=== PATIENT | male | born 1935 | race African-American/Black ===

== ENCOUNTER 2017-07-03 13:58 | Emergency (ER) | payer MEDICARE, OTHER ==
[~2017-07-03] VITALS: Ht 182.9 cm; Wt 86.2 kg
[2017-07-03 14:05] VITALS: BP 155/85
--- NOTE | 2017-07-03 14:24 | Emergency Room Report ---
History of Present Illness General Chief Complaint: Abdominal Pain Source: Patient, Medical Record, EMS Present Illness HPI Patient presents with complaints of diffuse abdominal discomfort Reports that the bloating sensation started today Denies any vomiting denies any diarrhea he reports that he had a bowel movement earlier today Denies any chest pain or shortness of breath When asked more specifically he denies having pain, however does report distention and discomfort, he also reports that he needs medicine to coat his stomach Denies any previous surgeries Allergies: Coded Allergies: No Known Allergies (Unverified , 07/03/17) Patient History Past Medical History: see triage record Pertinent Family History: none Reviewed Nursing Documentation: PMH: Agreed; PSxH: Agreed Nursing Documentation-PMH Past Medical History: No History, Except For Hx Hypertension: Yes Hx Diabetes: Yes Hx Cancer: Yes - prostate Review of Systems All Other Systems: negative except mentioned in HPI Physical Exam Vital Signs Date Time Temp Pulse Resp B/P (MAP) Pulse Ox O2 Delivery O2 Flow Rate FiO2 07/03/17 13:54 98.6 87 16 155/85 98 Room Air 98.6 Sp02 EP Interpretation: reviewed, normal General Appearance: well appearing, no apparent distress Head: normocephalic, atraumatic Eyes: bilateral eye PERRL, bilateral eye EOMI ENT: hearing grossly normal, normal pharynx, TMs + canals normal, uvula midline Neck: full range of motion, supple, no meningismus, no bony tend Respiratory: lungs clear, normal breath sounds, no rhonchi, no respiratory distress, no retraction, no accessory muscle use Cardiovascular #1: normal peripheral pulses, regular rate, rhythm, no edema, no gallop, no JVD, no murmur Gastrointestinal: normal bowel sounds, non tender, no guarding, no hernia, no pulsatile mass, no rebound, other - Patient does have a small palpable umbilical hernia which is soft, abdomen itself does appear mildly distended however on palpation is soft as well some mild decreased bowel sounds Genitourinary: no CVA tenderness Musculoskeletal: normal inspection Neurologic: oriented x3, responsive, car greaser III-XII nml as tested, motor strength/ tone normal, sensory intact Psychiatric: mood/affect normal Skin: normal color, no rash, warm/dry, palpation normal Lymphatic: normal inspection, no adenopathy Medical Decision Making Diagnostic Impression: Primary Impression: Abdominal pain Additional Impression: Enlarged prostate ER Course With the history exam and presentation, multiple differentials considered, including but not limited to appendicitis, gastritis, cholecystitis, diverticulitis Given the patient's age and risk factors cardiac pathology also entertained Blood work all at baseline levels CT imaging shows concerning findings including the prostate In discussion with the patient reports that he has history of prostate cancer and has undergone therapy and is following closely with his primary physician Patient at this time requesting to go home he had been put in for admission however he reports that his pain is better and does not want to be in the hospital Labs Test 07/03/17 14:45 07/03/17 14:50 Urine Color Pale yellow Urine Appearance Clear Urine pH 6 (4.5-8.0) Urine Specific [place] 1.005 (1.005-1.035) Urine Protein 1+ (NEGATIVE) Urine Glucose (UA) Negative (NEGATIVE) Urine Ketones Negative (NEGATIVE) Urine Occult Blood Negative (NEGATIVE) Urine Nitrite Negative (NEGATIVE) Urine Bilirubin Negative (NEGATIVE) Urine Urobilinogen Normal MG/DL (0.0-1.0) Urine Leukocyte Esterase Negative (NEGATIVE) Urine RBC 0-2 /HPF (0 - 0) Urine WBC 0-2 /HPF (0 - 0) Urine Squamous Epithelial Cells None /LPF (NONE/OCC) Urine Bacteria Few /HPF (NONE) White Blood Count 8.5 K/UL (4.8-10.8) Red Blood Count 4.70 M/UL (4.70-6.10) Hemoglobin 12.0 G/DL (14.2-18.0) Hematocrit 38.3 % (42.0-52.0) Mean Corpuscular Volume 82 FL (80-99) Mean Corpuscular Hemoglobin 25.5 PG (27.0-31.0) Mean Corpuscular Hemoglobin Concent 31.3 G/DL (32.0-36.0) Red Cell Distribution Width 15.5 % (11.6-14.8) Platelet Count 223 K/UL (150-450) Mean Platelet Volume 6.7 FL (6.5-10.1) Neutrophils (%) (Auto) 68.7 % (45.0-75.0) Lymphocytes (%) (Auto) 20.6 % (20.0-45.0) Monocytes (%) (Auto) 9.1 % (1.0-10.0) Eosinophils (%) (Auto) 0.7 % (0.0-3.0) Basophils (%) (Auto) 0.9 % (0.0-2.0) Sodium Level 135 MMOL/L (136-145) Potassium Level 4.2 MMOL/L (3.5-5.1) Chloride Level 100 MMOL/L (98-107) Carbon Dioxide Level 30 MMOL/L (21-32) Anion Gap 6 mmol/L (5-15) Blood Urea Nitrogen 18 mg/dL (7-18) Creatinine 1.2 MG/DL (0.55-1.30) Estimat Glomerular Filtration Rate mL/min (>60) Glucose Level 110 MG/DL (74-106) Calcium Level 9.7 MG/DL (8.5-10.1) Total Bilirubin 0.2 MG/DL (0.2-1.0) Aspartate Amino Transf (AST/SGOT) 20 U/L (15-37) Alanine Aminotransferase (ALT/SGPT) 20 U/L (12-78) Alkaline Phosphatase 77 U/L (46-116) Total Creatine Kinase 148 U/L (26-308) Creatine Kinase MB 2.2 NG/ML (0.0-3.6) Creatine Kinase MB Relative Index 1.4 Troponin I 0.000 ng/mL (0.000-0.056) Total Protein 8.0 G/DL (6.4-8.2) Albumin 3.6 G/DL (3.4-5.0) Globulin 4.4 g/dL Albumin/Globulin Ratio 0.8 (1.0-2.7) Lipase 166 U/L (73-393) Rhythm Strip Diag. Results EP Interpretation: yes Rate: 67 Rhythm: NSR, no PVC's, no ectopy CT/MRI/US Diagnostic Results CT/MRI/US Diagnostic Results : Impression CT abdomen pelvisIMPRESSION: Limited exam without intravenous or oral contrast. Within these limitations: * Marked enlargement of the prostate which can be benign or malignant in etiology. The posterior inferior bladder wall is inseparable from portions of the prostate and there is apparent mass lesion in the posterior aspect of the bladder. This is poorly evaluated without contrast and uncertain whether this represents benign etiology such as mass effect from an enlarged prostate (BPH) or malignant etiology such as invasion of prostatic malignancy into the bladder or discrete bladder mass. Correlation with PSA, urine cytology and cystoscopy recommended for better evaluation. Urology consult/followup recommended. 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 Correlate with urinalysis to exclude urinary tract infection. Additional findings as above. Last Vital Signs Date Time Temp Pulse Resp B/P (MAP) Pulse Ox O2 Delivery O2 Flow Rate FiO2 07/03/17 14:05 98.6 70 16 155/85 98 Room Air 98.6 Status: improved Disposition: HOME, SELF-CARE Condition: Improved Additional Instructions: Patient is provided with the discharge instructions notified to follow up with primary doctor in the next 2-3 days otherwise return to the er with any worsening symptoms. Please note that this report is being documented using [employer] technology. This can lead to erroneous entry secondary to incorrect interpretation by the dictating instrument. Trixie Daniel DO Jul 03, 2017 14:24
[2017-07-03] MEDS ORDERED: PROSCAR5 MG ORAL (14:26)
[2017-07-03] MEDS ORDERED: PEPCID20 MG ORAL (14:26)
[2017-07-03] MEDS ORDERED: LOSARTAN POTASS50 MG ORAL (14:26)
[2017-07-03] MEDS ORDERED: FERROUS SULFAT325 MG ORAL (14:26)
[2017-07-03] MEDS ORDERED: ATORVASTATIN CA20 MG ORAL (14:26)
[2017-07-03] MEDS ORDERED: CARVEDILOL12.5 MG ORAL (14:26)
[2017-07-03] MEDS ORDERED: FUROSEMIDE20 M1 ORAL (14:26)
[2017-07-03] MEDS ORDERED: METFORMIN HCL500 M1 ORAL (14:26)
[2017-07-03 15:00] VITALS: BP 139/55
[2017-07-03 15:08] LABS: BASOPHILS % (AUTO) 0.9 % (0.0-2.0); EOSINOPHILS % (AUTO) 0.7 % (0.0-3.0); HEMATOCRIT 38.3 % (42.0-52.0); LYMPHOCYTES % (AUTO) 20.6 % (20.0-45.0); MEAN CORPUSCULAR VOLUME 82 FL (80-99); MONOCYTES % (AUTO) 9.1 % (1.0-10.0); NEUTROPHILS % (AUTO) 68.7 % (45.0-75.0); PLATELET COUNT 223 K/UL (150-450); RED CELL DISTRIBUTION WIDTH 15.5 % (11.6-14.8); WHITE BLOOD COUNT 8.5 K/UL (4.8-10.8)
[2017-07-03 15:21] LABS: ANION GAP 6 mmol/L (5-15); BLOOD UREA NITROGEN 18 mg/dL (7-18); CALCIUM 9.7 MG/DL (8.5-10.1); CARBON DIOXIDE 30 MMOL/L (21-32); CHLORIDE 100 MMOL/L (98-107); CREATININE 1.2 MG/DL (0.55-1.30); POTASSIUM 4.2 MMOL/L (3.5-5.1); SODIUM 135 MMOL/L (136-145)
[2017-07-03 15:34] LABS: ALANINE AMINOTRANSFERASE 20 U/L (12-78); ALBUMIN 3.6 G/DL (3.4-5.0); ALBUMIN/GLOBULIN RATIO 0.8 (1.0-2.7); ALKALINE PHOSPHATASE 77 U/L (46-116); ASPARTATE AMINO TRANSFERASE 20 U/L (15-37); BILIRUBIN,TOTAL 0.2 MG/DL (0.2-1.0); CKMB 2.2 NG/ML (0.0-3.6); CREATINE KINASE 148 U/L (26-308)
[2017-07-03 15:47] LABS: APPEARANCE,URINE CLEAR; BILIRUBIN, URINE NEGATIVE (NEGATIVE); COLOR,URINE PALE YELLOW; GLUCOSE, URINE (UA) NEGATIVE (NEGATIVE); KETONES,URINE NEGATIVE (NEGATIVE); LEUKOCYTE ESTERASE ,URINE NEGATIVE (NEGATIVE); NITRITE,URINE NEGATIVE (NEGATIVE); PH,URINE 6 (4.5-8.0); PROTEIN,URINE 1+ (NEGATIVE); UROBILINOGEN,URINE NORMAL MG/DL (0.0-1.0)
[2017-07-03 16:00] VITALS: BP 140/61
--- NOTE | 2017-07-03 16:00 | Diagnostic Imaging Report ---
Indication: Trauma pain Technique: CT of the abdomen and pelvis utilizing automated exposure control without intravenous or oral contrast. CT dose: Total DLP 984.52 mGycm; CTDI vol 18.4 mGy Comparison: None Findings: Please note that evaluation of the abdominal and pelvic viscera is limited without the use of intravenous and oral contrast. Within these limitations, the following observations are made: There is dependent atelectasis in the lung bases. Heart size within normal limits. There is no pericardial effusion. Punctate nonspecific calcification noted within the right hepatic lobe. Liver is otherwise unremarkable in appearance. Gallbladder unremarkable. No appreciable biliary ductal dilatation. Some calcifications are noted at the periphery of the spleen (series 3 image #26). These are nonspecific and may be sequela of prior granulomatous exposure or trauma. Noncontrast evaluation of the adrenal glands and pancreas is grossly unremarkable. Kidneys are symmetric in size. There is no urinary tract stone or hydronephrosis bilaterally. There is circumferential thickening of the wall of the bladder. There is marked enlargement of the prostate which exerts mass effect on the bladder. 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 The posterior inferior bladder wall is inseparable from portions of the prostate and there is apparent mass lesion in the posterior aspect of the bladder. Uncertain whether this represents mass effect from the enlarged prostate on the bladder or invasion into the bladder or discrete bladder mass. There is no appreciable pathologically enlarged pelvic or trabecular peritoneal lymphadenopathy. There is no evidence of free intraperitoneal air or fluid. There is no bowel obstruction. The appendix is normal. No appreciable bowel wall thickening is seen. There is a small fat-containing umbilical hernia. Abdominal aorta is normal in caliber with scattered atherosclerotic calcification. There are multilevel degenerative changes of the spine. No acute osseous abnormality is seen. IMPRESSION: Limited exam without intravenous or oral contrast. Within these limitations: * Marked enlargement of the prostate which can be benign or malignant in etiology. The posterior inferior bladder wall is inseparable from portions of the prostate and there is apparent mass lesion in the posterior aspect of the bladder. This is poorly evaluated without contrast and uncertain whether this represents benign etiology such as mass effect from an enlarged prostate (BPH) or malignant etiology such as invasion of prostatic malignancy into the bladder or discrete bladder mass. Correlation with PSA, urine cytology and cystoscopy recommended for better evaluation. Urology consult/followup recommended. 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 Correlate with urinalysis to exclude urinary tract infection. Additional findings as above. The CT scanner at [facility] is accredited by the [employer] and the scans are performed using protocols designed to limit radiation exposure to as low as reasonably achievable to attain images of sufficient resolution adequate for diagnostic evaluation.
[2017-07-03] MEDS ORDERED: Dicyclomine HCl 10mg/5ml oral soln ORAL ONE (18:00)
[2017-07-03] MEDS ORDERED: Mylanta II UD 30ml ORAL ONE (18:00)
[2017-07-03 18:12] VITALS: BP 136/54
== END 2017-07-03 18:23 | disposition home or self-care (01) ==
LOC: EDBD 13:58 → EMR 14:31 → CANBEDREQ 17:47 → EMR 18:23
DX: R10.9 Unspecified abdominal pain (principal); N40.0 Benign prostatic hyperplasia without lower urinary tract symptoms; E11.9 Type 2 diabetes mellitus without complications; I10 Essential (primary) hypertension; Z85.46 Personal history of malignant neoplasm of prostate
CPT/HCPCS: 36415; 74176; 80053; 81003; 82550; 82553; 83690; 84484; 85025; 93005; 99284

== ENCOUNTER 2017-07-08 08:38 | Emergency (ER) | payer MEDICARE ==
[~2017-07-08] VITALS: Ht 180.3 cm; Wt 95.3 kg
[~2017-07-08 08:38] MED LIST: ATORVASTATIN CA20 MG ORAL; CARVEDILOL12.5 MG ORAL; FERROUS SULFAT325 MG ORAL; FUROSEMIDE20 M1 ORAL; LOSARTAN POTASS50 MG ORAL; METFORMIN HCL500 M1 ORAL; PEPCID20 MG ORAL; PROSCAR5 MG ORAL
[2017-07-08 08:40] VITALS: BP 156/84
[2017-07-08] MEDS ORDERED: Morphine Sulfate 2mg/ml Inj IVP ONE (08:45)
[2017-07-08] MEDS ORDERED: Mylanta II UD 30ml ORAL ONE (08:45)
--- NOTE | 2017-07-08 08:51 | Emergency Room Report ---
History of Present Illness General Chief Complaint: Abdominal Pain Source: Patient, EMS Present Illness HPI The patient presents with abdominal pain and alleged black tarry bowel movements. He was seen July 03 and a room was requested for admission however he elected to go home as the abdominal pain was somewhat improved. A CT scan was done at that time. The pain is a suprapubic and radiating towards his back on bilateral of his flanks. He denies any fevers or chills. There's no nausea and vomiting. Pain rated 8/10. Feels like burning and requesting something to coat his stomach. He was given pepcid and this has helped minimally. The patient has a history of prostate cancer and is followed by his own doctor. He has not had any recent visits to his physicians. CT showed large prostate and bladder thickening. Radiation therapy completed 1 year ago. His MD told him he has anemia and therefore he has been taking iron. No URI sy, CP, dyspnea, headaches, dizziness, rashes, rectal pain. Allergies: Coded Allergies: No Known Allergies (Unverified , 07/03/17) Patient History Past Medical History: see triage record Social History: Reports: smoking - stopped Social History Narrative at home Reviewed Nursing Documentation: PMH: Agreed; PSxH: Agreed Nursing Documentation-PMH Hx Hypertension: Yes Hx Diabetes: Yes Hx Cancer: Yes - prostate Review of Systems All Other Systems: negative except mentioned in HPI Physical Exam Vital Signs Date Time Temp Pulse Resp B/P (MAP) Pulse Ox O2 Delivery O2 Flow Rate FiO2 07/08/17 08:28 97.8 72 16 156/84 99 Room Air 97.9 Sp02 EP Interpretation: reviewed, normal General Appearance: well appearing, no apparent distress, GCS 15 Head: normocephalic Eyes: bilateral eye normal inspection, bilateral eye PERRL ENT: moist mucus membranes Neck: supple Respiratory: lungs clear, normal breath sounds Cardiovascular #1: regular rate, rhythm Cardiovascular #2: 2+ radial (R) Gastrointestinal: normal inspection, normal bowel sounds, no mass, non- distended, no guarding, no rebound, tenderness - epigastric Rectal: heme negative stool - dark, other - unable to feel prostate Musculoskeletal: back normal, gait/station normal, normal range of motion Neurologic: alert, oriented x3, grossly normal Psychiatric: mood/affect normal Skin: normal inspection, warm/dry Medical Decision Making Diagnostic Impression: Primary Impression: Abdominal pain Qualified Codes: R10.9 - Unspecified abdominal pain ER Course The patient presents with abdominal pain and black stools. Differential includes gastritis, peptic ulcer disease, iron ingestion amongst others. His CT scan was abnormal on the previous visit. Because of his age EKG will be obtained along with a chest x-ray. Also labs will be reperformed. The patient will receive gentle IV hydration as well as analgesia. Also given mylanta. EKG without injury. CXR normal. Abd films - not indicated based on exam and review of CT. Labs with normal H/H, WBC and CMP. Lipase normal. Improved with pain meds and mylanta. Discussed findings with patient and need for f/u with his MD. Patient stable for outpatient observation and treatment. Laboratory Tests Test 07/08/17 08:45 07/08/17 09:20 White Blood Count 7.3 K/UL (4.8-10.8) Red Blood Count 5.00 M/UL (4.70-6.10) Hemoglobin 13.1 G/DL (14.2-18.0) L Hematocrit 41.1 % (42.0-52.0) L Mean Corpuscular Volume 82 FL (80-99) Mean Corpuscular Hemoglobin 26.2 PG (27.0-31.0) L Mean Corpuscular Hemoglobin Concent 31.9 G/DL (32.0-36.0) L Red Cell Distribution Width 15.8 % (11.6-14.8) H Platelet Count 223 K/UL (150-450) Mean Platelet Volume 6.8 FL (6.5-10.1) Neutrophils (%) (Auto) 66.7 % (45.0-75.0) Lymphocytes (%) (Auto) 20.3 % (20.0-45.0) Monocytes (%) (Auto) 11.3 % (1.0-10.0) H Eosinophils (%) (Auto) 0.8 % (0.0-3.0) Basophils (%) (Auto) 0.8 % (0.0-2.0) Prothrombin Time 10.4 SEC (9.30-11.50) Prothrombin Time INR 1.0 (0.9-1.1) PTT 26 SEC (23-33) Sodium Level 135 MMOL/L (136-145) L Potassium Level 4.2 MMOL/L (3.5-5.1) Chloride Level 102 MMOL/L (98-107) Carbon Dioxide Level 26 MMOL/L (21-32) Anion Gap 7 mmol/L (5-15) Blood Urea Nitrogen 22 mg/dL (7-18) H Creatinine 1.3 MG/DL (0.55-1.30) Estimate Glomerular Filtration Rate mL/min (>60) Glucose Level 141 MG/DL (74-106) H Calcium Level 9.5 MG/DL (8.5-10.1) Total Bilirubin 0.3 MG/DL (0.2-1.0) Aspartate Amino Transferase (AST) 21 U/L (15-37) Alanine Aminotransferase (ALT) 21 U/L (12-78) Alkaline Phosphatase 77 U/L (46-116) Troponin I 0.000 ng/mL (0.000-0.056) Total Protein 7.9 G/DL (6.4-8.2) Albumin 3.5 G/DL (3.4-5.0) Globulin 4.4 g/dL Albumin/Globulin Ratio 0.8 (1.0-2.7) L Lipase 149 U/L (73-393) Urine Color Pale yellow Urine Appearance Clear Urine pH 6.5 (4.5-8.0) Urine Specific [place] 1.010 (1.005-1.035) Urine Protein 2+ (NEGATIVE) H Urine Glucose (UA) Negative (NEGATIVE) Urine Ketones Negative (NEGATIVE) Urine Occult Blood 1+ (NEGATIVE) H Urine Nitrite Negative (NEGATIVE) Urine Bilirubin Negative (NEGATIVE) Urine Urobilinogen Normal MG/DL (0.0-1.0) Urine Leukocyte Esterase Negative (NEGATIVE) Urine RBC 2-4 /HPF (0 - 0) H Urine WBC 0-2 /HPF (0 - 0) Urine Squamous Epithelial Cells Few /LPF (NONE/OCC) Urine Bacteria Few /HPF (NONE) EKG Diagnostic Results Rate: normal Rhythm: NSR ST Segments: no acute changes Rhythm Strip Diag. Results EP Interpretation: yes Rhythm: NSR, no PVC's, no ectopy Chest X-Ray Diagnostic Results Chest X-Ray Diagnostic Results : Chest X-Ray Ordered: Yes # of Views/Limited/Complete: 1 View Indication: Other EP Interpretation: Yes Interpretation: no consolidation, no effusion, no pneumothorax Impression: No acute disease Electronically Signed by: Ramírez Bernard MD Last Vital Signs Date Time Temp Pulse Resp B/P (MAP) Pulse Ox O2 Delivery O2 Flow Rate FiO2 07/08/17 11:40 97.9 67 16 144/58 99 Room Air 97.9 Status: improved Disposition: HOME, SELF-CARE Condition: Improved Scripts Famotidine (PEPCID) 20 Mg Tablet 20 MG ORAL DAILY, #30 TAB 0 Refills Prov: Ramírez Bernard M.D. 07/08/17 Mag Hydrox/Al Hydrox/Simeth (MAALOX MAXIMUM STRENGTH SUSP) 355 Ml Oral.susp 30 ML PO Q6HR, #240 ML 1 Refill Prov: Ramírez Bernard M.D. 07/08/17 Referrals: [facility],REFERRING (PCP) Ramírez Bernard M.D. Jul 08, 2017 08:51
[2017-07-08 09:01] LABS: BASOPHILS % (AUTO) 0.8 % (0.0-2.0); EOSINOPHILS % (AUTO) 0.8 % (0.0-3.0); HEMATOCRIT 41.1 % (42.0-52.0); HEMOGLOBIN 13.1 G/DL (14.2-18.0); LYMPHOCYTES % (AUTO) 20.3 % (20.0-45.0); MEAN CORPUSCULAR VOLUME 82 FL (80-99); MONOCYTES % (AUTO) 11.3 % (1.0-10.0); NEUTROPHILS % (AUTO) 66.7 % (45.0-75.0); PLATELET COUNT 223 K/UL (150-450); RED CELL DISTRIBUTION WIDTH 15.8 % (11.6-14.8); WHITE BLOOD COUNT 7.3 K/UL (4.8-10.8)
[2017-07-08 09:11] LABS: ANION GAP 7 mmol/L (5-15); BLOOD UREA NITROGEN 22 mg/dL (7-18); CALCIUM 9.5 MG/DL (8.5-10.1); CARBON DIOXIDE 26 MMOL/L (21-32); CHLORIDE 102 MMOL/L (98-107); CREATININE 1.3 MG/DL (0.55-1.30); POTASSIUM 4.2 MMOL/L (3.5-5.1); SODIUM 135 MMOL/L (136-145)
[2017-07-08 09:16] LABS: ALANINE AMINOTRANSFERASE 21 U/L (12-78); ALBUMIN 3.5 G/DL (3.4-5.0); ALBUMIN/GLOBULIN RATIO 0.8 (1.0-2.7); ALKALINE PHOSPHATASE 77 U/L (46-116); ASPARTATE AMINO TRANSFERASE 21 U/L (15-37); BILIRUBIN,TOTAL 0.3 MG/DL (0.2-1.0)
[2017-07-08 09:35] LABS: APPEARANCE,URINE CLEAR; BILIRUBIN, URINE NEGATIVE (NEGATIVE); COLOR,URINE PALE YELLOW; GLUCOSE, URINE (UA) NEGATIVE (NEGATIVE); KETONES,URINE NEGATIVE (NEGATIVE); LEUKOCYTE ESTERASE ,URINE NEGATIVE (NEGATIVE); NITRITE,URINE NEGATIVE (NEGATIVE); PH,URINE 6.5 (4.5-8.0); PROTEIN,URINE 2+ (NEGATIVE); UROBILINOGEN,URINE NORMAL MG/DL (0.0-1.0)
--- NOTE | 2017-07-08 10:29 | Diagnostic Imaging Report ---
Indication: Chest pain Technique: One view of the chest Comparison: none Findings: The lungs and pleural spaces are clear. Heart size is upper limits of normal. The aorta is elongated and tortuous Impression: No acute process
[2017-07-08] MEDS ORDERED: MAALOX MAXIMUM355 M1 PO (11:07)
[2017-07-08] MEDS ORDERED: PEPCID20 MG ORAL (11:07)
[2017-07-08 11:40] VITALS: BP 144/58
--- NOTE | 2017-07-09 17:28 | Cardiology Report ---
APPROVED REPORT EKG Measurement Heart [id number] [place] [id number] [id number] Normal sinus rhythm Normal ECG
== END 2017-07-08 12:07 | disposition home or self-care (01) ==
LOC: EDBD 08:38 → EMR 08:47
DX: R10.9 Unspecified abdominal pain (principal); Z85.46 Personal history of malignant neoplasm of prostate; Z87.891 Personal history of nicotine dependence; I10 Essential (primary) hypertension; E11.9 Type 2 diabetes mellitus without complications
CPT/HCPCS: 36415; 71045; 80053; 81003; 83690; 84484; 85025; 85610; 85730; 93005; 96361; 96374; 96375; 99284; J2405; S0028

== ENCOUNTER 2019-08-30 15:02 | Inpatient (IN) | payer MEDICARE, MEDICAID ==
[~2019-08-30] VITALS: Ht 180.3 cm; Wt 92.1 kg
[~2019-08-30 15:02] MED LIST changes: +MAALOX MAXIMUM355 M1 PO
--- NOTE | 2019-08-30 15:06 | Emergency Room Report ---
History of Present Illness General Source: Patient Present Illness HPI 84-year-old male brought in by EMS after increased abdominal pain and vomiting. Patient had been having difficulty with emesis for approximately 2 weeks. Intermittent episodes. Associated burning sensation in his chest. Patient was brought in by EMS after worsening abdominal pain.Patient has a past history of type 2 diabetes as well as high blood pressure. He has been taking iron pills.Patient had previous hospital visit which was noted to have prostate cancer and had previously radiation for his prostate. Patient was followed by Dr. Martinez for urology. Allergies: Coded Allergies: No Known Allergies (Unverified , 07/03/17) Patient History Past Medical History: see triage record Reviewed Nursing Documentation: PMH: Agreed; PSxH: Agreed Nursing Documentation-PMH Hx Hypertension: Yes Hx Diabetes: Yes Hx Cancer: Yes - prostate Review of Systems All Other Systems: negative except mentioned in HPI Physical Exam General Appearance: no apparent distress, alert, Chronically Ill Neck: full range of motion Respiratory: lungs clear, normal breath sounds Cardiovascular #1: normal peripheral pulses, regular rate, rhythm Gastrointestinal: distended, hernia - Easily reducible ventral hernia Musculoskeletal: normal inspection, decreased range of motion, normal range of motion Neurologic: alert, motor strength/tone normal, legal investigator III-XII nml as tested, oriented x3 Psychiatric: normal inspection, judgement/insight normal Skin: no rash Medical Decision Making Diagnostic Impression: Primary Impression: Abdominal pain Additional Impressions: Anemia Hyperkalemia Renal insufficiency ER Course Patient presented for abdominal pain. Differential diagnoses included ischemic bowel, appendicitis, perforated viscus, abdominal aortic aneurysm, inferior myocardial infarction, viral gastroenteritis among others.Because patient's complexity imaging studies, and laboratory testing ordered.Patient's laboratory testing showed markedly elevated potassium as well as elevated BUN and creatinine. He was noted to be hypoalbuminemic.Patient was consented for blood due to anemia but does not have any evidence of acute active bleeding at this time. Type and cross for blood. He was given IV Pepcid. White blood count was normal. Atrophic kidneys with CT of the abdomen pelvis showed: Thickened bladder wall markedly enlarged prostate. Patient was able to void in the emergency department with dark- colored urine. He was given IV fluids. Dr. Marquez was contacted for inpatient management for panel admission. Labs Test 08/30/19 15:20 08/30/19 16:35 08/30/19 17:18 White Blood Count 9.2 K/UL (4.8-10.8) Red Blood Count 2.86 M/UL (4.70-6.10) Hemoglobin 7.5 G/DL (14.2-18.0) Hematocrit 23.2 % (42.0-52.0) Mean Corpuscular Volume 81 FL (80-99) Mean Corpuscular Hemoglobin 24.6 PG (27.0-31.0) Mean Corpuscular Hemoglobin Concent 30.2 G/DL (32.0-36.0) Red Cell Distribution Width 18.8 % (11.6-14.8) Platelet Count 483 K/UL (150-450) Mean Platelet Volume 6.0 FL (6.5-10.1) Neutrophils (%) (Auto) % (45.0-75.0) Lymphocytes (%) (Auto) % (20.0-45.0) Monocytes (%) (Auto) % (1.0-10.0) Eosinophils (%) (Auto) % (0.0-3.0) Basophils (%) (Auto) % (0.0-2.0) Differential Total Cells Counted 100 Neutrophils % (Manual) 70 % (45-75) Lymphocytes % (Manual) 15 % (20-45) Monocytes % (Manual) 8 % (1-10) Eosinophils % (Manual) 1 % (0-3) Basophils % (Manual) 1 % (0-2) Band Neutrophils 5 % (0-8) Platelet Estimate Increased Platelet Morphology Normal Giant Platelets Occasional Hypochromasia 2+ Anisocytosis 2+ Prothrombin Time 12.3 SEC (9.30-11.50) Prothromb Time International Ratio 1.1 (0.9-1.1) Activated Partial Thromboplast Time 28 SEC (23-33) Sodium Level 126 MMOL/L (136-145) Potassium Level 6.3 MMOL/L (3.5-5.1) Chloride Level 96 MMOL/L (98-107) Carbon Dioxide Level 20 MMOL/L (21-32) Anion Gap 11 mmol/L (5-15) Blood Urea Nitrogen 84 mg/dL (7-18) Creatinine 6.5 MG/DL (0.55-1.30) Estimat Glomerular Filtration Rate 9.9 mL/min (>60) Glucose Level 112 MG/DL (74-106) Calcium Level 9.0 MG/DL (8.5-10.1) Total Bilirubin 0.3 MG/DL (0.2-1.0) Aspartate Amino Transf (AST/SGOT) 28 U/L (15-37) Alanine Aminotransferase (ALT/SGPT) 65 U/L (12-78) Alkaline Phosphatase 77 U/L (46-116) Troponin I 0.000 ng/mL (0.000-0.056) Total Protein 6.7 G/DL (6.4-8.2) Albumin 1.9 G/DL (3.4-5.0) Globulin 4.8 g/dL Albumin/Globulin Ratio 0.4 (1.0-2.7) Lipase 308 U/L (73-393) Urine Color Pale yellow Urine Appearance Turbid Urine pH 6 (4.5-8.0) Urine Specific [place] 1.010 (1.005-1.035) Urine Protein 3+ (NEGATIVE) Urine Glucose (UA) Negative (NEGATIVE) Urine Ketones Negative (NEGATIVE) Urine Blood 5+ (NEGATIVE) Urine Nitrite Negative (NEGATIVE) Urine Bilirubin Negative (NEGATIVE) Urine Urobilinogen Normal MG/DL (0.0-1.0) Urine Leukocyte Esterase 3+ (NEGATIVE) EKG Diagnostic Results Rate: normal Rhythm: NSR ST Segments: other - no peaked twaves or qwave abnormality Status: unchanged Disposition: ADMITTED INPATIENT Condition: Stable Rafy Cassidy MD Aug 30, 2019 15:06
[2019-08-30] MEDS ORDERED: Omnipaque-300 100ml vial INJ PRN (15:15)
[2019-08-30 15:44] LABS: HEMATOCRIT 23.2 % (42.0-52.0); MEAN CORPUSCULAR VOLUME 81 FL (80-99); PLATELET COUNT 483 K/UL (150-450); RED BLOOD COUNT 2.86 M/UL (4.70-6.10); RED CELL DISTRIBUTION WIDTH 18.8 % (11.6-14.8); WHITE BLOOD COUNT 9.2 K/UL (4.8-10.8)
[2019-08-30 15:45] LABS: HEMOGLOBIN 7.5 G/DL (14.2-18.0)
[2019-08-30 15:46] LABS: INR 1.1 (0.9-1.1)
[2019-08-30] MEDS ORDERED: AVODART0.5 MG ORAL (17:21)
[2019-08-30] MEDS ORDERED: JANUVIA25 MG ORAL (17:21)
[2019-08-30 17:25] LABS: ALANINE AMINOTRANSFERASE 65 U/L (12-78); ALBUMIN 1.9 G/DL (3.4-5.0); ALBUMIN/GLOBULIN RATIO 0.4 (1.0-2.7); ALKALINE PHOSPHATASE 77 U/L (46-116); ANION GAP 11 mmol/L (5-15); ASPARTATE AMINO TRANSFERASE 28 U/L (15-37); BILIRUBIN,TOTAL 0.3 MG/DL (0.2-1.0); BLOOD UREA NITROGEN 84 mg/dL (7-18); CARBON DIOXIDE 20 MMOL/L (21-32); CHLORIDE 96 MMOL/L (98-107); CREATININE 6.5 MG/DL (0.55-1.30); SODIUM 126 MMOL/L (136-145)
[2019-08-30 17:26] LABS: POTASSIUM 6.3 MMOL/L (3.5-5.1)
[2019-08-30 17:55] LABS: APPEARANCE,URINE TURBID; BILIRUBIN, URINE NEGATIVE (NEGATIVE); COLOR,URINE PALE YELLOW; GLUCOSE, URINE (UA) NEGATIVE (NEGATIVE); KETONES,URINE NEGATIVE (NEGATIVE); LEUKOCYTE ESTERASE ,URINE 3+ (NEGATIVE); NITRITE,URINE NEGATIVE (NEGATIVE); PH,URINE 6 (4.5-8.0); PROTEIN,URINE 3+ (NEGATIVE); UROBILINOGEN,URINE NORMAL MG/DL (0.0-1.0)
[2019-08-30] MEDS ORDERED: Sodium Polystyrene Sulfonate 15gm Powder ORAL ONE (18:00)
--- NOTE | 2019-08-30 18:11 | Diagnostic Imaging Report ---
EXAM: CT Abdomen and Pelvis With Intravenous Contrast CLINICAL HISTORY: ABD PAIN TECHNIQUE: Axial computed tomography images of the abdomen and pelvis with intravenous contrast. CTDI is 8 mGy and DLP is 497 mGy-cm. One or more of the following dose reduction techniques were used: automated exposure control, adjustment of the mA and/or kV according to patient size, use of iterative reconstruction technique. Coronal and sagittal reformatted images were created and reviewed. Axial reformatted images were created and reviewed. COMPARISON: 07/03/17 FINDINGS: Lung bases: Mosaic lung attenuation could represent small airways disease. Mediastinum: Moderate hiatal hernia. ABDOMEN: Liver: Old granulomatous disease in the liver. Otherwise unremarkable liver. Gallbladder and bile ducts: Unremarkable. No calcified stones. No ductal dilation. Pancreas: Stranding in the pancreaticoduodenal groove is of uncertain significance, and could be incidental, could be due to infectious or inflammatory duodenitis, mild and cryptitis, peptic ulcer disease, correlate with presentation. No ductal dilation. Spleen: Chronic splenic calcifications are likely no acute focal significance. Adrenals: Unremarkable. No mass. Kidneys and ureters: Massively enlarged prostate 6.7 cm TV by 10 cm CC by 6.7 cm AP with substantial urinary bladder wall thickening and prominent left lateral urinary bladder diverticulum. Bilateral moderate- severe hydroureteronephrosis. Bilateral urothelial thickening. Bilateral periureteral stranding and pericystic stranding. Stomach and bowel: See above. PELVIS: Appendix: No findings to suggest acute appendicitis. Bladder: Unremarkable. No mass. Reproductive: Unremarkable as visualized. ABDOMEN and PELVIS: Intraperitoneal space: Unremarkable. No free air. No significant fluid collection. Bones/joints: Degenerative spine findings. No acute fracture. No dislocation. Soft tissues: Small fat-containing bilateral indirect inguinal hernias. Soft tissue likely benign lipoma of the dorsal aspect of the penis 5.3 x 3.5 x 3.8 cm. Vasculature: Atherosclerotic vascular disease. No abdominal aortic aneurysm. Lymph nodes: Left periaortic retroperitoneal lymphadenopathy with largest node measuring 4.9 x 3.8 x 1.1 cm, this is concerning for retroperitoneal laisha metastatic disease, correlate with presentation and consider biopsy. IMPRESSION: 1. Massive prostatomegaly and urinary bladder wall thickening likely due to chronic outlet obstruction with findings suggesting superimposed UTI described above, correlate with presentation. 2. Recommend urology consultation. 3. Left periaortic retroperitoneal lymphadenopathy with largest node measuring 4.9 x 3.8 x 1.1 cm, this is concerning for retroperitoneal laisha metastatic disease, correlate with presentation and consider biopsy. 4. Stranding in the pancreaticoduodenal groove is of uncertain significance, and could be incidental, could be due to infectious or inflammatory duodenitis, mild and cryptitis, peptic ulcer disease, correlate with presentation. 5. Mosaic lung attenuation could represent small airways disease. 6. Moderate hiatal hernia. 7. Chronic splenic calcifications are likely no acute focal significance. 8. Probable subcutaneous lipoma dorsal to the penis.
[2019-08-30 18:33] VITALS: BP 135/83
[2019-08-30 19:16] VITALS: BP 135/83
--- NOTE | 2019-08-31 03:15 | History and Physical Report ---
DATE OF ADMISSION: 08/30/2019 HISTORY OF PRESENT ILLNESS: This is an 84-year-old male who came in with abdominal pain, nausea, vomiting, hyperkalemia, anemia, and was found to have a history of prostate CA, has been taking radiation treatment for two years. The patient has enlarged prostate, hyperkalemia, BUN and creatinine high and also was found hydronephrosis. The patient's hemoglobin was low at 7 units. The patient is currently alert, oriented x2. PAST MEDICAL HISTORY: Metastatic prostate CA, hypertension, and anemia. MEDICATIONS: See the list. ALLERGIES: No known drug allergies. FAMILY HISTORY: Noncontributory. SOCIAL HISTORY: Patient lives at home. PHYSICAL EXAMINATION: GENERAL: This is an elderly cachectic male, generalized weakness. The patient looks diaphoretic and generalized weakness. VITAL SIGNS: Blood pressure is 110/70, pulse 74, and respirations 18. Temperature, no fever. HEENT: NAD. CHEST: Bilateral decreased breath sounds. CARDIOVASCULAR: Regular rhythm. No gallop. No murmur. ABDOMEN: Soft, positive bowel sounds, nontender. EXTREMITIES: No edema. GENITOURINARY: Deferred. LABORATORY DATA: The patient's hemoglobin is 7.5, BUN 84, creatinine 6.3, and K was 6.3. ASSESSMENT: 1. Abdominal pain. 2. Nausea and vomiting. 3. Weakness. 4. Hyperkalemia. 5. Acute renal failure. 6. Enlarged prostate. 7. Hydronephrosis. We will admit on telemetry bed. 8. Anemia. PLAN: We will admit on telemetry bed. Type and cross and transfuse 2 units. Consider Nephrology consult, and the patient was given Kayexalate. We will repeat his BMP tomorrow. Consider Urology and Nephrology consult, and also start some hydration. Wilder Marquez M.D. DR: RC JOB#: [id number] CC:
--- NOTE | 2019-08-31 10:30 | Discharge Summary ---
Discharge Summary Discharge Summary _ DATE OF ADMISSION: 08/30/2019 DATE OF DISCHARGE: 08/30/2019 Patient left AGAINST MEDICAL ADVICE REASON FOR ADMISSION: 84 years old male with past medical history of metastatic prostate cancer, hypertension, anemia, presented with abdominal pain with associated nausea and vomiting. Upon evaluation in emergency department patient was found to have acute renal failure with BUN 84, creatinine 6.5. Potassium was 6.3 , sodium 126. Troponin was negative. EKG revealed sinus rhythm , no acute ischemic changes. Patient also had evidence of evidence of anemia with hemoglobin 7.5 and hematocrit 23.2. Urinalysis revealed pyuria , many bacteria, +[address] of the abdomen and pelvis demonstrated 1. Massive prostatomegaly and urinary bladder wall thickening likely due to chronic outlet obstruction with findings suggesting superimposed UTI described above, correlate with presentation. 2. Recommend urology consultation. 3. Left periaortic retroperitoneal lymphadenopathy with largest node measuring 4.9 x 3.8 x 1.1 cm, concerning for retroperitoneal laisha metastatic disease, correlate with presentation and consider biopsy. 4. Stranding in the pancreaticoduodenal groove is of uncertain significance, and could be incidental, could be due to infectious or inflammatory duodenitis, mild and cryptitis, peptic ulcer disease, correlate with presentation. 5. Mosaic lung attenuation could represent small airways disease. 6. Moderate hiatal hernia. 7. Chronic splenic calcifications are likely no acute focal significance. 8. Probable subcutaneous lipoma dorsal to the penis. In the emergency department patient received 1 L of fluid , Pepcid, antiemetic, treated for hyperkalemia and subsequently admitted to telemetry floor for further management. HOSPITAL COURSE: Patient admitted to telemetry floor. Patient was typed and crossed and ordered transfusion of 2 units of packed red blood cells. Patient started on the IV hydration. Patient received Kayexalate in ED. Nephrology and urology consulted. Later the same day patient decided to leave AGAINST MEDICAL ADVICE. The risks and consequences of signing AGAINST MEDICAL ADVICE were discussed with patient in detail. Patient verbalized understanding, nevertheless signed AMA form and left. FINAL DIAGNOSES: Acute renal failure Hyperkalemia Anemia Abdominal pain with nausea and vomiting Metastatic prostate cancer Hydronephrosis Possible UTI I have been assigned to dictate discharge summary for this account. I was not involved in the patient's management. Elaine Vidal NP Aug 31, 2019 10:30
== END 2019-08-30 21:50 | disposition left against medical advice (07) | DRG 683 ==
LOC: EDBD 15:02 → EMR 15:30 → 2E 16:27 → EDBEDREQ 17:09
DX: N17.9 Acute kidney failure, unspecified (principal); N39.0 Urinary tract infection, site not specified; C77.2 Secondary and unspecified malignant neoplasm of intra-abdominal lymph nodes; E87.5 Hyperkalemia; N40.0 Benign prostatic hyperplasia without lower urinary tract symptoms; C61 Malignant neoplasm of prostate; K44.9 Diaphragmatic hernia without obstruction or gangrene; D17.1 Benign lipomatous neoplasm of skin and subcutaneous tissue of trunk; N13.30 Unspecified hydronephrosis
CPT/HCPCS: 36415; 74176; 80053; 81003; 83690; 84484; 85007; 85025; 85610; 85730; 86850; 86900; 86901; 86920; 87086; 93005; 96361; 96374; 96375; 99285; J2405; J7030

== ENCOUNTER 2020-02-23 11:30 | Emergency (ER) | payer MEDICARE, MEDICAID ==
[~2020-02-23] VITALS: Ht 180.3 cm; Wt 81.6 kg
[~2020-02-23 11:30] MED LIST changes: +AVODART0.5 MG ORAL; +BACTRIM DS TAB1 EAC1 ORAL; +JANUVIA25 MG ORAL; +LEVOFLOXACIN500 MG ORAL; +ULTRA-LIGHT RO1 EACH MC
[2020-02-23 11:40] VITALS: BP 146/70
--- NOTE | 2020-02-23 11:47 | NUR ---
ED Nurse Note: Brought in by ambulance on [facility]. Breathing is unlabored resting comfortably. Axox4. Pt states that while he was changing his sanchez bag that he got "a little excited" and inadvertently removed his sanchez catheter. He also has two nephrostomy bags bilat that are draining clear yellow fluid. He has the bags attached to the leg strap upon arrival. No complaints of pain. Vital signs stable as documented on RA.
--- NOTE | 2020-02-23 12:15 | NUR ---
ED Nurse Note: Inserted catheter. No adverse reactions. No bleeding or pain. Draining clear fluid. Changed to leg bag per pt request.
[2020-02-23 12:20] VITALS: BP 140/62
--- NOTE | 2020-02-23 12:21 | NUR ---
ER DISCHARGE NOTE: Patient is cleared to be discharged per ERMD, pt is aox4, on room air, with stable vital signs. pt was given dc and instructions, pt was able to verbalize understanding, pt id band removed without complications. pt is able to ambulate with steady gait. pt took all belongings. DC to home via taxi.
--- NOTE | 2020-02-24 07:08 | Emergency Room Report ---
History of Present Illness General Chief Complaint: Male Urogenital Problems Source: Patient, Medical Record Present Illness HPI 84-year-old male presents for Sanchez catheter replacement. Brought in by EMS from home. Accidentally pulled out his Sanchez catheter today. History of BPH. [facility] Denies any bleeding. Denies pain. No other aggravating relieving factors. 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: No Patient History Past Medical History: DM, HTN Past Surgical History: none Pertinent Family History: none Social History: Denies: smoking, alcohol use, drug use Immunizations: UTD Reviewed Nursing Documentation: PMH: Agreed; PSxH: Agreed Nursing Documentation-PMH Hx Hypertension: Yes Hx Diabetes: Yes Hx Cancer: Yes Review of Systems All Other Systems: negative except mentioned in HPI Physical Exam Vital Signs Date Time Temp Pulse Resp B/P (MAP) Pulse Ox O2 Delivery O2 Flow Rate FiO2 02/23/20 11:26 98.2 76 18 147/75 (99) 97 Room Air Sp02 EP Interpretation: reviewed, normal General Appearance: no apparent distress, alert, GCS 15, non-toxic Head: normocephalic, atraumatic Eyes: bilateral eye normal inspection, bilateral eye PERRL ENT: hearing grossly normal, normal pharynx, no angioedema, normal voice Neck: full range of motion, supple/symm/no masses Respiratory: chest non-tender, lungs clear, normal breath sounds, speaking full sentences Cardiovascular #1: regular rate, rhythm, no edema Cardiovascular #2: 2+ carotid (R), 2+ carotid (L), 2+ radial (R), 2+ radial (L), 2+ dorsalis pedis (R), 2+ dorsalis pedis (L) Gastrointestinal: normal bowel sounds, non tender, soft, non-distended, no guarding, no rebound Rectal: deferred Genitourinary: normal inspection, no CVA tenderness Musculoskeletal: back normal, normal range of motion, gait/station normal, non- tender Neurologic: alert, motor strength/tone normal, oriented x3, sensory intact, r esponsive, speech normal Psychiatric: judgement/insight normal, memory normal, mood/affect normal, no suicidal/homicidal ideation Reflexes: 3+ bicep (R), 3+ bicep (L), 3+ tricep (R), 3+ tricep (L), 3+ knee (R), 3+ knee (L) Lymphatic: no adenopathy Medical Decision Making Diagnostic Impression: Primary Impression: Sanchez catheter problem Qualified Codes: T83.9XXA - Unspecified complication of genitourinary prosthetic device, implant and graft, initial encounter ER Course Hospital Course 84-year-old male pulled out his Sanchez catheter today by mistake Differential diagnoses include: obstruction, UTI, BPH Clinical course Patient placed on stretcher. After initial history and physical I ordered sanchez cather with immediate relief of obstruction I discussed findings with patient. Will discharge home with Sanchez and leg bag. States he will follow-up with his urologist at the [facility] Diagnosis -Sanchez catheter problem Stable and discharged home with sanchez + leg bag. Instructed to followup with PMD/urologist. Return to ED if symptoms recur or worsen Last Vital Signs Date Time Temp Pulse Resp B/P (MAP) Pulse Ox O2 Delivery O2 Flow Rate FiO2 02/23/20 12:20 98.2 82 16 140/62 98 Room Air Status: improved Disposition: HOME, SELF-CARE Condition: Stable Referrals: NON PHYSICIAN (PCP) Patient Instructions: Sanchez Catheter Care, Adult, [id number] Vaibhav Salcido MD Feb 24, 2020 07:08
== END 2020-02-23 13:00 | disposition home or self-care (01) ==
LOC: EDBD 11:30 → EMR 12:50
DX: T83.021A Displacement of indwelling urethral catheter, initial encounter (principal); I10 Essential (primary) hypertension; E11.9 Type 2 diabetes mellitus without complications; N40.0 Benign prostatic hyperplasia without lower urinary tract symptoms; Z85.9 Personal history of malignant neoplasm, unspecified
CPT/HCPCS: 99283

== ENCOUNTER 2020-05-05 22:03 | Emergency (ER) | payer MEDICARE, MEDICAID ==
[~2020-05-05] VITALS: Ht 180.3 cm; Wt 86.2 kg
--- NOTE | 2020-05-05 22:10 | NUR ---
ED Nurse Note: Patient BIBA with complaints of catheter malfunction, pulled out and leakage noted. Patient has three leg bags, all unclean. Patient reports having cath in the seven months. Afebrile. Denies any of pain or infections.
--- NOTE | 2020-05-05 23:08 | Emergency Room Report ---
History of Present Illness General Chief Complaint: General Complaint Source: Patient, Medical Record Present Illness HPI He 5-year-old male with history of obstructive uropathy. [facility] He has bilateral nephrostomy tubes and a Rosas. He presents with chief complaint of problem with his tube. He said the left one came out and right back is leaking. He denies any trauma. No fever chills no pain. The last time he had this change was over a month ago. He is scheduled for follow-up next week. Allergies: Coded Allergies: No Known Allergies (Unverified , 07/03/17) COVID-19 Screening Contact w/high risk pt: No Recent Travel to affected area: No Experienced COVID-19 symptoms?: No COVID-19 Testing performed SNOW MAKER: No Patient History Past Medical History: see triage record, old chart reviewed, DM, HTN Past Surgical History: other Pertinent Family History: none Social History: Denies: smoking Immunizations: other Reviewed Nursing Documentation: PMH: Agreed; PSxH: Agreed Nursing Documentation-PMH Hx Hypertension: Yes Hx Diabetes: Yes Hx Cancer: Yes Review of Systems Eye: Denies: eye pain, blurred vision ENT: Denies: ear pain, nose congestion, throat swelling Respiratory: Denies: cough, shortness of breath Cardiovascular: Denies: chest pain, palpitations Gastrointestinal: Denies: abdominal pain, diarrhea, nausea, vomiting Musculoskeletal: Denies: back pain, joint pain Skin: Denies: rash Neurological: Denies: headache, numbness Endocrine: Denies: increased thirst, increased urine Hematologic/Lymphatic: Denies: easy bruising All Other Systems: negative except mentioned in HPI Physical Exam Vital Signs Date Time Temp Pulse Resp B/P (MAP) Pulse Ox O2 Delivery O2 Flow Rate FiO2 05/05/20 22:01 90 18 156/85 (108) 96 Room Air Vitals with high blood pressure Sp02 EP Interpretation: reviewed, normal General Appearance: well appearing, no apparent distress, alert Head: normocephalic, atraumatic Eyes: bilateral eye PERRL, bilateral eye EOMI ENT: hearing grossly normal, normal pharynx Neck: full range of motion, supple, no meningismus Respiratory: chest non-tender, lungs clear, normal breath sounds Cardiovascular #1: regular rate, rhythm, no murmur Gastrointestinal: normal bowel sounds, non tender, no mass, no organomegaly, no bruit, non-distended Genitourinary: other - Left nephrostomy tube is dislodged completely. There is no drainage from the left flank area. No tenderness. The right leg bag of the nephrostomy tube is leaking. The Rosas bag is fine. Musculoskeletal: back normal, normal range of motion, gait/station normal Psychiatric: mood/affect normal Medical Decision Making Diagnostic Impression: Primary Impression: Displacement of nephrostomy catheter, initial encounter ER Course Patient presents with dislodgment of his left nephrostomy tube. He is otherwise stable. I see no need for emergent placement. Unfortunately we do not have any nephrostomy bag so I used the L1 to replace the one on the right so will not leak. A new catheter bag was replaced. Will have patient follow-up with [facility] and his urologist within a week. Last Vital Signs Date Time Temp Pulse Resp B/P (MAP) Pulse Ox O2 Delivery O2 Flow Rate FiO2 05/05/20 22:01 90 18 156/85 (108) 96 Room Air Status: improved Disposition: HOME, SELF-CARE Condition: Stable Referrals: NOT CHOSEN [facility]/,REFERRING (PCP) Additional Instructions: Follow-up at the [facility] and your urologist within a week. Return for fever, increasing pain or any concern. Arnulfo Nunez MD May 05, 2020 23:08
--- NOTE | 2020-05-05 23:24 | NUR ---
ED Nurse Note: Temp 98.0
--- NOTE | 2020-05-05 23:25 | NUR ---
ER DISCHARGE NOTE: Patient is cleared to be discharged per ERMD, pt is aox4, on room air, with stable vital signs. pt was given dc and instructions, pt was able to verbalize understanding, pt id band removed without complications, leg bags changed, pt verbalized understanding for Urologist follow up. pt is able to ambulate with steady gait. pt took all belongings.
--- NOTE | 2020-05-05 23:29 | NUR ---
Wisam belle in EDM - 05/06/20 at 0000 by OPHELIA ED Note: Temp 98.0
[2020-05-05 23:55] VITALS: BP 156/85
== END 2020-05-06 | disposition home or self-care (01) ==
LOC: EDBD 22:03 → EMR 22:25
DX: T83.022A Displacement of nephrostomy catheter, initial encounter (principal); I10 Essential (primary) hypertension; E11.9 Type 2 diabetes mellitus without complications; Z79.899 Other long term (current) drug therapy; Z85.9 Personal history of malignant neoplasm, unspecified; Z96.0 Presence of urogenital implants
CPT/HCPCS: 99282